=== PATIENT | female | born 1990 | race Caucasian/White ===

== ENCOUNTER 2016-04-07 19:04 | Emergency (ER) | payer MEDICAID ==
[~2016-04-07] VITALS: Ht 160 cm; Wt 102.5 kg
[~2016-04-07 19:04] MED LIST: AMOXI/CLAVULANA1 TAB; AMOXIL500 MG PO; CEPHALEXIN500 MG PO; HYDROCODONE1 TABLET PO; IRON TABLETS325 MG PO; IRON65 MG PO; KEFLEX 500MG.500 MG PO; LABETALOL 100M100 MG PO; LORTAB 5/500 501 TAB PO; LORTAB 500 MG-71 TAB PO; MOTRIN 400MG.400 MG PO; MOTRIN400 MG PO; NOMEDS; OC; PNV-DHA PLUS1 SGL PO; PRENATAL PLUS1 TA1 PO; PYRIDIUM 200MG200 MG PO; SEPTRA DS 800 M1 TAB PO; SUDAFED 24 HOU240 MG PO; SULFAMETHOXAZOL1 TA6 PO; VICODIN 5/500 T1 TAB PO; VOLTAREN75 MG PO; ZITHROMAX Z PA250 MG PO
[2016-04-07] MEDS ORDERED: AMOXICILLIN 50500 MG PO (19:32)
[2016-04-07] MEDS ORDERED: NAPROXEN500 M1 PO (19:33)
[2016-04-07] MEDS ORDERED: ADIPEX-P37.5 M2 PO (19:34)
--- NOTE | 2016-04-07 20:04 | Urgent Treatment Center Report ---
History of Present Issue Date/Time Seen by Provider 04/07/161952 Visit Reason Pt arrived:Walked Presenting Problem:PT C/O PAIN IN HER LOWER BACK AND IN HER LEFT ARM/LEG THINKS SHE MAY HAVE PULLED A MUSCLE Location if Accident: Onset of symptoms date/time:/ or onset unknown for:MEDICAL HX UNKNOWN Have you (or family members/close friends) recently traveled outside the [place]? N If Yes, where/when: Have you had exposure to infectious disease within the past month? TB? Other? Specify: c/o multiple vague symptoms. Poor historian. Started w/ left mid back pain "about 6 days ago". Mild but radiated around to left lower abdomen that same day. At some point in the last 6 days, she also started to notice back pain in the same area on right side that also radiated around to right lower abdomen. pain described as constant aching with sharp intermittent pains. "Even waking me up at night". Pain typically 7/10. Both abdominal pain and back pain remain present, just back pain worse then abdominal pain. Wants both evaluated today although thinks it is all just a pulled muscle. Around the same time, 6 days ago , pt started to notice blood tinged clear vaginal discharge with odor. Unsure of last pap but last pelvic was one month ago w/ Dr. Walker "to check for STDs". Her and her significant other had splint and had seperate partners so she requested it. Reports everything came back negative. Has had intercource since symptoms started, describes that as painful. Also wants to report constant nausea the last 4-5 days as well as now she is having left leg pain for 2-3 days and today, left arm pain. Pt has paraguard. Source patient Exam Limitations no limitations (ANGIE HOBBS APRN) ALLERGIES Coded Allergies: latex (Intermediate, 04/07/16) Home Medications Reported Medications Amoxicillin Trihydrate (Amoxicillin 500MG) 500 MG PO BID #20 Naproxen 500 MG PO BID #60 Phentermine HCl (Adipex-P) 37.5 MG PO DAILY (Desiree GALLAGHER,Kyaw Noel) History Medical History General Angina: No MT: No Hypertension? Yes Hyperlipidemia? No CHF? No COPD? No Asthma? No CVA? No Seizures? No Diabetes? No GB Disease: No Nephritic Syndrome? No Asplenia? No Sickle Cell Disease? No MRSA? Yes TB? No Cancer? 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 Musculoskeletal back pain, denies muscle stiffness (ANGIE HOBBS APRN) Respiratory denies shortness of breath Cardiovascular denies chest pain Skin denies rash Psychiatric/Neurological denies headache, denies seizure (Desiree GALLAGHER,Kyaw Noel) Physical Exam General Appearance normal appearance Respiratory Status No: respiratory distress. Gastrointestinal normal bowel sounds, soft, obese, tenderness bilateral lower and right upper quadrants Back CVA tenderness (L) Neurologic alert Skin warm/dry (ANGIE HOBBS APRN) Vital Signs Vital Signs Date Time Temp Pulse Resp B/P Pulse O2 O2 Flow FiO2 Ox Delivery Rate 04/07 2151 85 16 140/84 100 04/07 2025 98.5 91 16 145/96 100 04/07 1930 98.5 91 16 145/96 100 04/07 1909 98.5 91 16 145/96 100 Eye Exam - bilateral eye PERRL, bilateral eye EOMI Cardiovascular regular rate/rhythm Extremities normal inspection Strength 4 Upper Ext (L), 4 Upper Ext (R), 4 Lower Ext (L), 4 Lower Ext (R) Pelvic deferred Mental status normal mood/affect (Desiree GALLAGHER,Kyaw Noel) Medical Decision Making LABS/Meds/Orders Pt receiving controlled substance in ED? 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 Pt needs seen in ER, not [facility] for further evaluation (ANGIE HOBBS APRN) LABS/Meds/Orders Results/Orders Laboratory Tests 04/07/162040: Sodium 140, Potassium 3.9, Chloride 106, Carbon Dioxide 28, BUN 12, Creatinine 0.8, Estimated Creat Clear 171, Estimated GFR (MDRD) 86, Glucose 78, Calcium 8.4 L, Total Bilirubin 0.1 L, AST 16, ALT 25, Alkaline Phosphatase 94, Total Protein 7.4, Albumin 3.4, Globulin 4.0 H, Albumin/Globulin Ratio 0.9 L, Amylase 49, Lipase 115, WBC 6.5, RBC 4.70, Hgb 14.0, Hct 41.3, MCV 87.9, RDW 13.2, Plt Count 221, MPV 6.3 L, Gran % 47.4, Gran # 3.1, Lymphocytes % 46.6, Monocytes % 4.2, Eosinophils % 1.4, Basophils % 0.4, Lymphocytes # 3.0, Monocytes # 0.3, Eosinophils # 0.1, Basophils # 0.0, PUBS MCHC 33.8, MCH 29.7 04/07/162008: Urine Color YELLOW, Urine Appearance Clear, Urine pH 7.0, Ur Specific [place] 1.025, Urine Protein NEGATIVE, Urine Ketones NEGATIVE, Urine Blood TRACE H, Urine Nitrate NEGATIVE, Urine Bilirubin NEGATIVE, Urine Urobilinogen 0.2, Ur Leukocyte Esterase NEGATIVE, Urine Glucose NEGATIVE, Urine Test NEGATIVE Current Medication Orders Sig/Kofi Start time Last Medication Dose Route Stop Time Status Admin Acetaminophen/ 1 SURY ONCE ONE 04/07 2199 DCD 04/07 Codeine Phosphate PO 04/07 Acetaminophen/ 0 .STK-MED ONE 04/07 2147 DC Codeine Phosphate PO Sodium Chloride 10 ML PRN PRN 04/07 2044 DCD IV 04/08 2037 Orders Procedure Date/time Status DIET-NOTHING BY MOUTH 04/[address] ABD & PELVIS W/O CONTRAST 04/[address] ABD/PELVIS REQ 04/07 2038 Complete LIPASE 04/07 2038 Complete CBC WITH AUTO DIFF 04/07 2038 Complete CHEM 12 PROFILE 04/07 2038 Complete AMYLASE 04/07 [address] [facility] URINE 04/07 [address] 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
[2016-04-07 20:13] LABS: URINE BILIRUBIN - DIPSTICK NEGATIVE (NEG); UTC URINE PREGNANCY NEGATIVE (NEG)
[2016-04-07 20:14] LABS: URINE BLOOD TRACE (NEG)
[2016-04-07 20:52] LABS: LYMPH % 46.6 % (10-50.0)
[2016-04-07 21:51] VITALS: BP 140/84
--- NOTE | 2016-04-08 07:58 | RADIOLOGY REPORT PS360 ---
CT ABD PELVIS W/O CONTRAST CLINICAL INDICATION: Left-sided abdominal pain ABDOMINAL PAIN ORDERING PHYSICIAN: Kyaw Ramírez MD PATIENT AGE: 26 years COMPARISON: None TECHNIQUE: Axial images obtained with sagittal and coronal reformats. PROCEDURE: Oral Contrast: None IV Contrast: None . FINDINGS: Lower thorax: There is a macrolobulated noncalcified nodule in the right middle lobe anterolaterally with a small satellite nodule adjacent to the larger nodule ABDOMEN: Liver: No masses or biliary dilatation. Gallbladder: Nondistended. No radio opaque stones. Pancreas: No masses or peripancreatic fluid collections. Spleen: Unremarkable. Adrenals: Unremarkable Kidneys/ureters: No masses. No renal calculi. No hydronephrosis. No perinephric fluid collections. No ureteral dilatation or obvious ureteral calculi. Stomach bowel: Nondistended. No obvious mass or thickening. Appendix: No evidence of appendicitis. PELVIS: Reproductive: IUD present Bladder: Nondistended. No obvious stones or masses. ABDOMEN & PELVIS: Peritoneum: No abnormal fluid collections. No obvious inflammatory changes. No free air. Lymph nodes: No enlarged lymph nodes apparent. Vasculature: No evidence of abdominal aortic aneurysm. No retroperitoneal hemorrhage evident. Bones: No acute fracture IMPRESSION: No acute intra-abdominal or pelvic pathology apparent Right middle lobe noncalcified pulmonary nodule probably related to granuloma. Stability may be confirmed with follow-up.
[2016-06-04] MEDS ORDERED: KEFLEX 500MG.500 MG PO (20:12)
== END 2016-04-07 21:52 | disposition home or self-care (01) ==
LOC: ER 19:04 → UTC 19:14 → ER 19:14
PROVIDERS: Emergency Medicine; Nurse Practitioner Family
DX: R10.11 Right upper quadrant pain (principal); R10.31 Right lower quadrant pain; I10 Essential (primary) hypertension; Z72.0 Tobacco use

== ENCOUNTER → 2016-04-08 | Outpatient (CLI) | payer MEDICAID ==
[~2016-04-08] MED LIST changes: +ADIPEX-P37.5 M2 PO; +AMOXICILLIN 50500 MG PO; +NAPROXEN500 M1 PO
[2016-04-12 10:37] LABS: Neisseria gonorrhoeae, NAA Negative (Negative)
== END ==
LOC: LAB 14:43
PROVIDERS: Nurse Practitioner Obstetrics & Gynecology
DX: Z72.51 High risk heterosexual behavior (principal)